=== PATIENT | female | born 1970 | race Caucasian/White ===

== ENCOUNTER 2023-12-16 20:49 | Emergency (ER) | payer OTHER, SELFPAY ==
[2023-12-16 20:50] VITALS: BP 180/98
--- NOTE | 2023-12-17 00:44 | ED.GENMED ---
History of Present Illness
General
Chief Complaint: Crisis Evaluation
Source: patient
Exam Limitations: none
Time Seen by Provider: 12/16/23 20:52
Nursing documentation reviewed up to this point in time: agreed with
Travel History
Have you had any contact with someone who has COVID-19?: No
Do you have any symptoms of coronavirus? Fever > 100 degrees, chills, cough, shortness of breath, sore throat, loss of taste or smell, muscle aches, or headache?: No
History of Present Illness
History of Present Illness:
Patient presents to ED for medical evaluation after 302 petition was filed by her spouse, secondary to medication noncompliance along with increased agitation and aggressive behavior towards multiple family hours. In ED, patient denies any suicidal
or homicidal ideation. Denies recent illness. Denies recent change in medications or diet. Patient states that she has had difficult time with her for long period of time.
Past History
Past History
ED Past Medical History: Psychiatric (Bipolar disorder)
Social History
Alcohol: Occasional
Drug: Marijuana
Review of Systems
Review of Systems
Allergies reviewed?: Yes
All Other Systems: ROS reviewed and negative except as documented in HPI and ROS
Constitutional: Reports no symptoms
EENT: Reports no symptoms
Respiratory: Reports no symptoms
Cardiac: Reports no symptoms
ABD/GI: Reports no symptoms
Musculoskeletal: Reports no symptoms
Skin: Reports no symptoms
Neurological: Reports no symptoms
Psychiatric: Denies anxiety, suicidal or hallucinations
Phy Exam
Physical Exam
Physical Exam:
Physical Exam
General: no apparent distress, not acutely ill. afebrile
Head: nc/at. eomi
Neck: supple. normal range of motion.
Heart: s1/s2 regular rate and rhythm, no murmur. equal radial pulses.
Lungs: no acute respiratory distress. clear bilaterally
Abdomen: normal bowel sounds. not tender.
Neuro: alert and oriented. no focal neurological deficits
Skin: no rash
Psychiatric: well kept. interactive and cooperative
Extremities: no edema. no calf tenderness.
Course
Orders/Labs/Results
Orders:
Orders
12/16/23 21:26
Crisis Consult Routine
Reason for Consult: 302
12/17/23 01:05
Acetaminophen Urgent
Alcohol Urgent
Complete Blood Count/No Diff Urgent
Comprehensive Metabolic Panel Urgent
HCG, Serum Qualitative Screen Urgent
Comment: ADD ON
Salicylate Urgent
12/17/23 05:02
Add On- LAB Urgent
Tests Added?: HCG qualitative
12/17/23 07:51
Add On- LAB Urgent
Tests Added?: urine drug screen
12/17/23 08:30
Urine Drug Abuse Screen Urgent
Date Specimen was Collected: 12/17/23
Time Specimen was Collected: 07:51
Abnormal Lab Results
12/17/23 12/17/23
01:05 08:30
WBC 11.5 H 10^3/uL
(4.8-10.8)
MCH 31.8 H pg
(27.0-31.0)
Sodium 134 L mmol/L
(135-145)
Salicylates < 1.0 L mg/dl
(2.0-20.0)
Acetaminophen < 10 L ug/ml
(10-30)
U Marijuana (THC) Screen Positive H
(Negative)
12/17/23 01:05
12/17/23 01:05
Vital Signs
Initial and Last Documented VS:
Initial Vital Signs
Temp Pulse Resp BP Pulse Ox
99.0 F 98 18 180/98 96
12/16/23 20:50 12/16/23 20:50 12/16/23 20:50 12/16/23 20:50 12/16/23 20:50
Last Documented Vital Signs
Temp Pulse Resp BP Pulse Ox
98.9 F 83 18 132/91 95
12/17/23 07:49 12/17/23 07:49 12/17/23 07:49 12/17/23 07:49 12/17/23 07:49
MDM/Problems Addressed
MDM/Problems Addressed:
Pt evaluated by tele-psychiatry who recommends in-patient psychiatric evaluation/treatment.
Pt is medically cleared.
*Critical Care Note
Total Time (30-74mins, 75-104mins- exclusive of procedures): Not Applicable
ED Attending Note
-
Portions of this chart may have been created with voice recognition software.� Occasional wrong word or��sound alike� substitutions may have occurred due to the inherent limitations of voice recognition software.
Discharge Plan
Departure
Patient Disposition: Psych Facility
Date of Disposition: 12/17/23
Time of Disposition: 00:49
Discharge Problem:
Silvana
Prescriptions:
No Action
quetiapine 25 MG tablet
25 mg PO BID
montelukast 10 MG tablet
10 mg PO DAILY
fluoxetine 20 MG capsule
20 mg PO DAILY
fluticasone furoate-vilanterol [Breo Ellipta] 1 EACH blister with device
1 ea IH DAILY
Medical Cannabis-Patient's Own
Referrals:
UNKNOWN - PT DOES,NOT KNOW [Family Provider] -
Interventions
Interventions:
*Risk Screen - Suicide Last Done: 12/16/23 20:50
*General Assessment Last Done: 12/16/23 20:50
*Neglect/Abuse Screening Last Done: 12/16/23 20:50
ED- Fall Risk Assessment Last Done: 12/17/23 01:00
*ED COVID-19 Vaccine History Last Done: 12/16/23 20:50
ED-Psychological Assessment Last Done: 12/16/23 20:50
Discharge Date and Time
Print Language: [place]
[2023-12-17 01:11] LABS: Hematocrit 41.6 % (37.0-47.0); Hemoglobin 14.8 g/dL (12.0-16.0); Mean Corp Hgb Conc. 35.6 g/dL (33.0-37.0); Mean Corpuscular Hgb 31.8 pg (27.0-31.0); Mean Corpuscular Volume 89.5 fL (81.0-99.0); Mean Platelet Volume 9.2 fL (7.4-10.4); Platelet Count 327 10^3/uL (130-400); Red Blood Cell Count 4.65 10^6/uL (4.20-5.40); Red Cell Dist. Width 12.7 % (11.5-14.5); White Blood Cell Count 11.5 10^3/uL (4.8-10.8)
[2023-12-17 01:27] LABS: ALT (SGPT) 16 U/L (0-35); AST (SGOT) 23 U/L (14-36); Acetaminophen < 10 ug/ml (10-30); Albumin 4.2 g/dl (3.5-5.0); Alkaline Phosphatase 90 U/L (38-126); Blood Urea Nitrogen 13 mg/dl (7-17); Calcium 9.9 mg/dl (8.4-10.2); Carbon Dioxide 30 mmol/L (22-30); Chloride 103 mmol/L (98-107); Glucose 94 mg/dl (70-99); Potassium 4.1 mmol/L (3.5-5.1); Salicylate < 1.0 mg/dl (2.0-20.0); Sodium 134 mmol/L (135-145); Total Bilirubin 0.4 mg/dl (0.2-1.3); Total Protein 6.5 g/dl (6.3-8.2); eGFR > 60.00
[2023-12-17 02:49] LABS: Alcohol None Detected
[2023-12-17 06:04] LABS: HCG, Serum Qualitative Screen Negative
[2023-12-17 07:49] VITALS: BP 132/91
[2023-12-17 09:26] LABS: Amphetamines Negative (Negative); Barbiturates Negative (Negative); Benzodiazepines Negative (Negative); Buprenorphine Negative (Negative); Cocaine Negative (Negative); Marijuana Positive (Negative); Methadone Negative (Negative); Methamphetamines Negative (Negative); Opiates Negative (Negative); Phencyclidine Negative (Negative); Tricyclic Antidepressants Negative (Negative)
--- NOTE | 2023-12-17 16:37 | EDRN ---
Report given to [facility]. Patient calm and cooperative.
== END 2023-12-17 16:20 ==
LOC: EMR 20:49
PROVIDERS: EMERGENCY PHYSICIAN Emergency Medicine
DX: F30.9 Manic episode, unspecified (principal); Z91.148 Patient's other noncompliance with medication regimen for other reason
CPT/HCPCS: 99283; 80053; 80143; 80179; 80306; 82077; 84703; 85027